=== PATIENT | male | born 1960 | race Caucasian/White ===

== ENCOUNTER → 2016-08-28 | Day surgery (SDC) | payer BC ==
[2016-08-28] VITALS (8 sets, daily range): BP systolic 115–124; BP diastolic 71–76
[~2016-08-28] VITALS: Ht 175.3 cm; Wt 70.3 kg
[~2016-08-28] MED LIST: LOVASTATIN40 MG ORAL; LR 1000ml 1,000 ML IV ONE; LR 1000ml ONE; Lidocaine 1% MPF 10mg/ml 5ml ONE; Propofol 10mg/ml 20ml IV ONE
--- NOTE | 2016-08-28 06:49 | Anethesia Preoperative Eval ---
Anesthesia Pre-op PMH/ROS General Date of Evaluation: Aug 28, 2016 Time of Evaluation: 06:48 Anesthesiologist: cleopatra Mallampati Score Class I : Soft palate, uvula, fauces, pillars visible Class II: Soft palate, uvula, fauces visible Class III: Soft palate, base of uvula visible Class IV: Only hard plate visible Surgeon: carlton Diagnosis: colon screening Surgical Procedure: colonoscopy Anesthesia History: none Family History: no anesthesia problems Allergies: Coded Allergies: ERYTHROMYCIN BASE (Verified Allergy, Severe, BREAKOUT ALL OVER HIS BODY ( ALL MYACINS), 08/27/16) SHELLFISH DERIVED (Verified Allergy, Unknown, ANAPHYLACTIC SHOCK, 08/27/16) Medications: see eMAR Past Medical History Cardiovascular: Denies: CAD, HTN, PR, arrhythmia, other, valve dz Pulmonary: Denies: COPD, KATIE, asthma, other Gastrointestinal/Genitourinary: Denies: CRI, ESRD, GERD, other Neurologic/Psychiatric: Denies: CVA, TIA, dementia, depression/anxiety, other Endocrine: Denies: DM, hypothyroidism, other, steroids HEENT: Denies: [place] (L), [place] (R), cataract (L), cataract (R), glaucoma, other Hematology/Immune: Denies: DVT, anemia, bleeding disorder, other Musculoskeletal/Integumentary: Denies: DDD, DJD, OA, RA, edema, other PSxH Narrative: none Anesthesia Pre-op Phys. Exam Physician Exam Last Vital Signs Date Time Temp Pulse Resp B/P Pulse Ox O2 Delivery O2 Flow Rate FiO2 08/28/16 06:42 97.9 70 20 124/73 96 Room Air Constitutional: NAD Neurologic: CN 2-12 intact Cardiovascular: RRR Respiratory: CTA Gastrointestinal: S/NT/ND Airway Exam Mallampati Classification 2 Mallampati Score: Class II MO: full Neck: normal TMD: 3 ROM: full Dentures: no lower, no upper Anesthesia Pre-op A/P Risk Assessment & Plan Plan: mac Status Change Before Surgery: No Pre-Antibiotics Drug: none VERNON SOLOMON ANALYTICAL CONSULTANT Aug 28, 2016 06:49
--- NOTE | 2016-08-28 07:15 | Short Stay Surgery H&P ---
History of Present Illness History of Present Illness Chief Complaint see attached HPI Geovany Kat, II is a 55 year old male who was admitted on for Colon Screening Patient History Allergies: Coded Allergies: ERYTHROMYCIN BASE (Verified Allergy, Severe, BREAKOUT ALL OVER HIS BODY ( ALL MYACINS), 08/27/16) SHELLFISH DERIVED (Verified Allergy, Unknown, ANAPHYLACTIC SHOCK, 08/27/16) PAST MEDICAL HISTORY: Past Surgeries: Social History: Medication History Scheduled Lovastatin (Lovastatin), 40 MG ORAL DAILY, (Reported) Physical Exam Vital Signs Last Vital Signs Date Time Temp Pulse Resp B/P Pulse Ox O2 Delivery O2 Flow Rate FiO2 08/28/16 06:42 97.9 70 20 124/73 96 Room Air Plan Attestation Are the patient's medical conditions optimized for surgery? BHAVIK REGALADO Aug 28, 2016 07:15
--- NOTE | 2016-08-28 07:16 | Pre-Procedure Note/Attestation ---
Pre-Procedure Note/Attestation Complete Prior to Procedure Planned Procedure: not applicable Procedure Narrative: colon Indications for Procedure Pre-Operative Diagnosis: screen Attestation I attest that I discussed the nature of the procedure; its benefits; risks and complications; and alternatives (and the risks and benefits of such alternatives ), prior to the procedure, with the patient (or the patient's legal hostess party sales representative). I attest that, if there was a reasonable possibility of needing a blood transfusion, the patient (or the patient's legal hostess party sales representative) was given the [facility] standardized written summary, pursuant to the Jeremiah Grey Blood Safety Act ([place] Health and Safety Code # 1645, as amended). I attest that I re-evaluated the patient just prior to the surgery and that there has been no change in the patient's H&P, except as documented below: BHAVIK REGALADO Aug 28, 2016 07:15
--- NOTE | 2016-08-28 07:46 | Immediate Post-Op Evaluation ---
Immediate Post-Op Evalulation Immediate Post-Op Evalulation Procedure: colonosopy Date of Evaluation: Aug 28, 2016 Time of Evaluation: 07:55 IV Fluids: 500 Blood Pressure Systolic: 131 Blood Pressure Diastolic: 60 Pulse Rate: 65 Respiratory Rate: 14 O2 Sat by Pulse Oximetry: 100 Temperature (Fahrenheit): 97.4 Nausea: No Vomiting: No Patient Status: awake, reacts, patent Hydration Status: adequate Drug: none VERNON SOLOMON CRNA Aug 28, 2016 07:46
--- NOTE | 2016-08-28 08:04 | 48 Hour Post Anesthesia Eval ---
Post Anesthesia Evaluation Procedure: colonosopy Date of Evaluation: Aug 28, 2016 Time of Evaluation: 08:04 Blood Pressure Systolic: 123 0: 74 Pulse Rate: 65 O2 Sat by Pulse Oximetry: 100 Airway: patent Nausea: No Vomiting: No Hydration Status: adequate Mental Status/LOC: patient returned to baseline Post-Anesthesia Complications: na Follow-up care needed: N/A VERNON SOLOMON CRNA Aug 28, 2016 08:04
--- NOTE | 2016-08-28 08:45 | Endoscopy Procedure Note ---
Endoscopy Procedure Note Indication for Procedure: screen Procedures Performed: colonoscopy Operative Findings/Diagnosis: tics Specimen: none Pt Tolerated Procedure Well: Yes Estimated Blood Loss: none Anesthesia: MAC Medication Given: see anesthesia record Implant(s) used?: No 50 yrs or older w/o bx or poly: Yes 10yrs. F/U not recommended: Yes If not recommended, why?: 10 yrs. F/U needed: Yes 18 years or older w/prev. colo: No <3yrs. since last colonoscopy: No Med reason:<3 yrs.: System Reason:<3 yrs.: Last colonoscopy >= to 3yrs: Yes BHAVIK REGALADO Aug 28, 2016 08:45
--- NOTE | 2016-08-28 08:47 | Brief Operative Note ---
Immediate Post Operative Note Operative Note Chief Complaint: screen Pre-op Diagnosis: screen Procedure: colon Post-op Diagnosis: tics Surgeon: casi Anesthesiologist: dulce Anesthesia: MAC Specimen: none Complications: none Condition: stable Estimated Blood Loss: none Drains: none Implant(s) used?: No BHAVIK REGALADO Aug 28, 2016 08:46
--- NOTE | 2016-08-28 16:07 | Operative Note - Dictated ---
DATE OF OPERATION: 08/28/2016 GASTROENTEROLOGY PROGRESS REPORT PROCEDURE: colonoscopy. SURGEON: Steph March M.D. ANESTHESIA: Please see the separate anesthesiologist notes for details. PRE-ENDOSCOPIC DIAGNOSIS: Screening. POST-ENDOSCOPIC DIAGNOSES: 1. Mild diverticulosis. 2. Mild internal hemorrhoids. PROCEDURE: The procedure, its risks, indications, alternatives, and possible complications were explained to the patient and an informed consent was obtained. The patient was then sedated and rectal exam was done. The colonoscope was introduced in the rectum and advanced to the cecum. The cecum was identified by the appearance of the ileocecal valve. The colonoscope was then gradually withdrawn and the mucosa examined carefully. Examination of the colonic mucosa revealed mild sigmoid diverticulosis. Retroflexed view of the rectum revealed mild internal hemorrhoids. The colonoscope was removed and the patient was sent to recovery in good condition. COMPLICATIONS: None. RECOMMENDATIONS: 1. High fiber diet. 2. Outpatient followup. 3. Repeat screening colonoscopy in 5 to 10 years. Thank you for asking me to participate in the care this patient. Steph March M.D. DR: JOHANN JOB#: [id number] CC: Narciso Dash M.D. ; Fax#: [phone]
== END | disposition home or self-care (01) ==
LOC: GAS 05:56
DX: Z12.11 Encounter for screening for malignant neoplasm of colon (principal); K57.30 Diverticulosis of large intestine without perforation or abscess without bleeding; K64.8 Other hemorrhoids; E78.00 Pure hypercholesterolemia, unspecified; Z88.3 Allergy status to other anti-infective agents; Z91.013 Allergy to seafood
CPT/HCPCS: 45378; J2704; J7120; 94003; 94150